=== PATIENT | male | born 1965 | race Caucasian/White ===

== ENCOUNTER 2018-10-04 19:47 | Emergency (ER) | payer MEDICAID ==
[~2018-10-04] VITALS: Ht 175.3 cm; Wt 85.7 kg
[2018-10-04 20:05] VITALS: BP_SYST 145
--- NOTE | 2018-10-04 20:10 | NUR ---
Patient triaged and placed in waiting room. VSS and patient appears in no acute distress at this time. Accompanied by family, awaiting available bed, and MD notified of need for MSE.
[2018-10-04] MEDS ORDERED: LISI10TA5 PO (20:18)
--- NOTE | 2018-10-04 20:20 | NUR ---
Patient AOx4, ambulatory, presents to ER with complaint of body aches, abdominal pain, dizziness, nausea, vomiting, generalized weakness, decreased appetite, "bones hurt" X 10 days. patient states he medicated with Power Magnesium x 3-4 hours ago. Patient states last BM was 4 days ago. No other symptoms or complaints. at bedside.
--- NOTE | 2018-10-04 20:40 | NUR ---
Patient to ER bed 5 for evaluation. Report given to Mary.
--- NOTE | 2018-10-04 21:20 | NUR ---
ER MD Beckham at bedside for medical evaluation.
[2018-10-04] MEDS ORDERED: NACL 0.9% 1,000 ML IV ONE (21:30)
[2018-10-04 21:58] LABS: CALCIUM 8.5 mg/dL (8.4-11.0); CREATININE 0.88 mg/dL (0.55-1.30); POTASSIUM 4.2 mmol/L (3.5-5.1)
[2018-10-04 22:05] LABS: ALBUMIN 3.8 g/dL (3.4-4.8); HEMATOCRIT 42.7 % (36-54); HEMOGLOBIN 14.9 g/dL (14.0-18.0); MEAN CORPUSCULAR HEMOGLOBIN 32 pg (27-31); MEAN CORPUSCULAR HGB CONC 35 % (32-36); MEAN CORPUSCULAR VOLUME 93 fL (79.0-98.0); PLATELET COUNT (AUTO) 168 K/uL (130-430); RED BLOOD CELL COUNT(AUTO) 4.61 MIL/uL (4.2-6.2); RED CELL DISTRIBUTION WIDTH 12.7 % (9.0-15.0); TOTAL BILIRUBIN 0.7 mg/dL (0.0-1.0); WHITE BLOOD COUNT (AUTO) 7.3 K/uL (4.8-10.8)
[2018-10-04 22:06] LABS: BASOPHILS % (AUTO) 0.5 % (0.0-2.0); EOSINOPHILS # (AUTO) 0.3 K/uL (0.0-0.4); EOSINOPHILS % (AUTO) 4.1 % (0.0-4.0); LYMPHOCYTES # (AUTO) 1.5 K/uL (1.0-5.5); MONOCYTES # (AUTO) 0.6 K/uL (0.0-1.0); MONOCYTES % (AUTO) 7.8 % (1.7-9.3); NEUTROPHILS # (AUTO) 4.9 K/uL (1.8-7.7); NEUTROPHILS % (AUTO) 66.6 % (40.0-70.0)
[2018-10-04] MEDS ORDERED: KETOROLAC TROMETHAMINE 30 MG VIAL IVP ONE (23:00)
[2018-10-04 23:33] VITALS: BP_SYST 140
--- NOTE | 2018-10-04 23:33 | NUR ---
Patient given written and verbal discharge instructions and verbalizes understanding. ER MD discussed with patient the results and treatment provided. Patient in stable condition. ID arm band removed. IV catheter removed intact and dressing applied, no active bleeding. Rx of Motrin given. Patient educated on pain management and to follow up with PMD. Pain Scale 02/10 tolerable to patient. Opportunity for questions provided and answered. Medication side effect fact sheet provided.
== END 2018-10-04 23:33 | disposition home or self-care (01) ==
LOC: SED 19:47
DX: R53.1 Weakness (principal); R19.7 Diarrhea, unspecified; M79.10 Myalgia, unspecified site; I10 Essential (primary) hypertension
CPT/HCPCS: 36415; 80053; 85025; 96361; 96374; 99283; J1885; J7030

== ENCOUNTER 2019-04-11 13:12 | Emergency (ER) | payer MEDICAID ==
[~2019-04-11] VITALS: Ht 175.3 cm; Wt 83.9 kg
[~2019-04-11 13:12] MED LIST: LISI10TA5 PO
[2019-04-11 13:27] VITALS: BP_SYST 145
[2019-04-11 13:46] VITALS: BP_SYST 133
== END 2019-04-11 13:46 | disposition home or self-care (01) ==
LOC: SED 13:12
DX: L03.221 Cellulitis of neck (principal); F11.10 Opioid abuse, uncomplicated; I10 Essential (primary) hypertension
CPT/HCPCS: 99283

== ENCOUNTER 2019-07-08 19:00 | Emergency (ER) | payer MEDICAID ==
[~2019-07-08] VITALS: Ht 175.3 cm; Wt 83.9 kg
[2019-07-08 19:33] VITALS: BP_SYST 138
--- NOTE | 2019-07-08 19:37 | NUR ---
Patient triaged and placed in waiting room. VSS and patient appears in no acute distress at this time. Accompanied by self, awaiting available bed, and MD notified of need for MSE.
--- NOTE | 2019-07-08 21:34 | NUR ---
[facility] Side rails up. Report given to MIKE ZIEGLER.
--- NOTE | 2019-07-08 21:53 | NUR ---
Patient complains of left great toe pain for 3 days. Patient states he thinks it's cellulitis and that his toenail fell off. Pt had similar experience about a year ago. Pt denies N/V, fever, or diarrhea. No other injuries/complaints per patient or noted.
--- NOTE | 2019-07-08 22:33 | NUR ---
ER Dr. Amos at bedside examining patient.
[2019-07-08 23:00] VITALS: BP_SYST 130
--- NOTE | 2019-07-08 23:00 | NUR ---
Patient given written and verbal discharge instructions and verbalizes understanding. ER MD discussed with patient the results and treatment provided. Patient in stable condition. ID arm band removed. NO IV Rx of Augmentin given. Patient educated on pain management and to follow up with PMD. Pain Scale 0/10. Opportunity for questions provided and answered. Medication side effect fact sheet provided.
== END 2019-07-08 23:00 | disposition home or self-care (01) ==
LOC: SED 19:00
DX: S93.105A Unspecified dislocation of left toe(s), initial encounter (principal); L03.032 Cellulitis of left toe; I10 Essential (primary) hypertension; Z87.891 Personal history of nicotine dependence; X58.XXXA Exposure to other specified factors, initial encounter; Y93.89 Activity, other specified; Y92.89 Other specified places as the place of occurrence of the external cause; Y99.8 Other external cause status
CPT/HCPCS: 99283

== ENCOUNTER 2019-08-09 23:29 | Emergency (ER) | payer MEDICAID ==
[~2019-08-09] VITALS: Ht 175.3 cm; Wt 83.5 kg
[2019-08-09 23:34] VITALS: BP_SYST 141
--- NOTE | 2019-08-09 23:38 | NUR ---
Patient to ER [facility] 1 to gown for evaluation. Side rails up.
--- NOTE | 2019-08-09 23:50 | NUR ---
Note becky in EDM - 08/10/19 at 0034 by [email or web address] Pt presents to ER with pelvic pain /burning , pt has IUD, pt on her period at this time, skin pink and warm, cap refill <3, afebrile.
--- NOTE | 2019-08-09 23:50 | NUR ---
Patient was BIB [facility] for okay to book. Pt denies any pain at the time. Per pt he has high blood pressure. Pt denies any N/V, fever, CP, or shortness of breath. No other injuries/complaints per patient or noted.
--- NOTE | 2019-08-09 23:52 | NUR ---
Dr Drake at bedside examining patient
[2019-08-10] MEDS ORDERED: LISINOPRIL 10 MG TABLET (PRINIVIL) PO ONE (00:30)
[2019-08-10 00:38] VITALS: BP_SYST 139
--- NOTE | 2019-08-10 00:38 | NUR ---
Patient given written and verbal discharge instructions and verbalizes understanding. ER MD discussed with patient the results and treatment provided. Patient in stable condition. ID arm band removed. No Rx given. Patient educated on pain management and to follow up with PMD. Pain Scale 0. Opportunity for questions provided and answered. Medication side effect fact sheet provided. Accompanied by [facility]. VSS
--- NOTE | 2019-08-10 00:39 | NUR ---
Computer not scanning , medications entered manually , name, verified.
== END 2019-08-10 00:38 ==
LOC: SED 23:29
DX: Z02.89 Encounter for other administrative examinations (principal); I10 Essential (primary) hypertension
CPT/HCPCS: 99283

== ENCOUNTER 2019-12-08 17:20 | Emergency (ER) | payer MEDICAID ==
[~2019-12-08] VITALS: Ht 167.6 cm; Wt 77.1 kg
--- NOTE | 2019-12-08 17:30 | NUR ---
Patient to ER bed 06 to gown for evaluation. Side rails up.
[2019-12-08 17:37] VITALS: BP_SYST 154
--- NOTE | 2019-12-08 17:40 | NUR ---
Patient presented to ER C/O skin rash. Patient A&Ox4, ambulatory to ER, skin pink & warm, pain 09/13, denies N/V/D. Patient states he had itchiness and discharge from skin today after shower. No discharge noted on assessment.
--- NOTE | 2019-12-08 17:40 | NUR ---
ER Dr. Alvarado at bedside examining patient.
[2019-12-08 18:50] VITALS: BP_SYST 149
--- NOTE | 2019-12-08 18:50 | NUR ---
Patient given written and verbal discharge instructions and verbalizes understanding. ER MD discussed with patient the results and treatment provided. Patient in stable condition. ID arm band removed. Rx of BENADRYL given. Patient educated on pain management and to follow up with PMD. Pain Scale 3/10. Opportunity for questions provided and answered. Medication side effect fact sheet provided.
== END 2019-12-08 18:50 | disposition home or self-care (01) ==
LOC: SED 17:20
DX: R21 Rash and other nonspecific skin eruption (principal); R07.9 Chest pain, unspecified
CPT/HCPCS: 93005; 99283

== ENCOUNTER 2021-05-09 08:45 | Emergency (ER) | payer MEDICAID, SELFPAY ==
[~2021-05-09] VITALS: Ht 175.3 cm; Wt 86.2 kg
[2021-05-09 08:45] VITALS: BP_SYST 168
[~2021-05-09 08:45] MED LIST changes: +LISI10TA29 PO; -LISI10TA5 PO
--- NOTE | 2021-05-09 08:45 | NUR ---
BROUGHT TO OUTSIDE TRIAGE TENT AND TRIAGED. AWAITING ER BED
--- NOTE | 2021-05-09 09:01 | NUR ---
PT STATES THAT FLU LIKE SYMPTOMS SINCE YESTERDAY, STATES HE IS A RESIDENT OF [facility]. PT STATES HEADACHES, BODY ACHES, SORE THROAT, FEVERS AND GENERALIZED WEAKNESS. SPOKE WITH PT ABOUT ELEVATED BLOOD PRESSURE AND PT STATES HE HAS NOT TAKEN HIS LISINOPRIL FOR LAST 6 MONTHS. WILL MONITOR BLOOD PRESSURE
--- NOTE | 2021-05-09 09:11 | NUR ---
DR CUI OUTSIDE TO TENT FOR EVALUATION
[2021-05-09] MEDS ORDERED: IBUP-1969 PO (10:39)
[2021-05-09 10:45] VITALS: BP_SYST 154
--- NOTE | 2021-05-09 10:45 | NUR ---
Patient given written and verbal discharge instructions and verbalizes understanding. ER MD discussed with patient the results and treatment provided. Patient in stable condition. ID arm band removed. Rx of IBUPROFEN given. Patient educated on pain management and to follow up with PMD. Pain Scale 0/10. Opportunity for questions provided and answered. Medication side effect fact sheet provided.
== END 2021-05-09 10:45 | disposition home or self-care (01) ==
LOC: SED 08:45
DX: B34.9 Viral infection, unspecified (principal); I10 Essential (primary) hypertension; Z20.822 Contact with and (suspected) exposure to COVID-19; Z79.899 Other long term (current) drug therapy
CPT/HCPCS: 36415; 86710; 99283

== ENCOUNTER 2023-03-05 00:54 | Emergency (ER) | payer MEDICAID ==
[~2023-03-05 00:54] MED LIST changes: +IBUP-1969 PO
== END 2023-03-05 01:10 | disposition left against medical advice (07) ==
LOC: SED 00:54
DX: R07.9 Chest pain, unspecified (principal); Z53.21 Procedure and treatment not carried out due to patient leaving prior to being seen by health care provider

== ENCOUNTER 2023-08-26 16:45 | Emergency (ER) | payer MEDICAID ==
[~2023-08-26] VITALS: Ht 172.7 cm; Wt 90.7 kg
[2023-08-26 16:53] VITALS: BP_SYST 159; PULSE 106; RESP 18; TEMP 97.6; O2SAT 95
[2023-08-26] MEDS ORDERED: CEFAZOLIN 2 GM IVPB PREMIX 50 ML IV ONE (17:45)
[2023-08-26] MEDS ORDERED: ONDANSETRON HCL 4 MG/2 ML VIAL IVP ONE (17:45)
[2023-08-26] MEDS ORDERED: NACL 0.9% 1,000 ML IV ONE (17:45)
[2023-08-26] MEDS ORDERED: LIDOCAINE/EPI 1% 1:100000 20 ML VIAL INJ ONE (18:00)
[2023-08-26 18:14] LABS: BASOPHILS # (AUTO) 0.1 K/uL (0.0-0.2); BASOPHILS % (AUTO) 0.9 % (0.0-2.0); EOSINOPHILS # (AUTO) 0.1 K/uL (0.0-0.4); EOSINOPHILS % (AUTO) 1.2 % (0.0-4.0); HEMATOCRIT 44.2 % (36-54); HEMOGLOBIN 15.6 g/dL (14.0-18.0); LYMPHOCYTES # (AUTO) 1.8 K/uL (1.0-5.5); LYMPHOCYTES % (AUTO) 21.8 % (20.5-51.5); MEAN CORPUSCULAR HEMOGLOBIN 34 pg (27-31); MEAN CORPUSCULAR HGB CONC 35 % (32-36); MEAN CORPUSCULAR VOLUME 95 fL (79.0-98.0); MONOCYTES # (AUTO) 0.8 K/uL (0.0-1.0); MONOCYTES % (AUTO) 9.6 % (1.7-9.3); NEUTROPHILS # (AUTO) 5.5 K/uL (1.8-7.7); NEUTROPHILS % (AUTO) 66.5 % (40.0-70.0); PLATELET COUNT (AUTO) 166 K/uL (130-430); RED BLOOD CELL COUNT(AUTO) 4.65 MIL/uL (4.2-6.2); RED CELL DISTRIBUTION WIDTH 12.6 % (9.0-15.0); WHITE BLOOD COUNT (AUTO) 8.2 K/uL (4.8-10.8)
[2023-08-26 19:09] LABS: CALCIUM 8.4 mg/dL (8.4-11.0); CREATININE 0.74 mg/dL (0.55-1.30)
[2023-08-26] MEDS ORDERED: LIDOCAINE 1%, 20 ML MDV 20 ML ONE (20:15)
[2023-08-26] MEDS ORDERED: DOXY100C5 PO (20:38)
[2023-08-26] MEDS: KETOROLAC TROMETHAMINE 30 MG VIAL IM ONE (21:02)
[2023-08-26] MEDS: ONDANSETRON 4 MG ODT TAB PO ONE (21:03)
[2023-08-26] MEDS: HYDROcodone/ACETAMIN 10-325 MG TAB PO ONE (21:03)
== END 2023-08-26 21:05 | disposition home or self-care (01) ==
LOC: SED 16:45
DX: L02.211 Cutaneous abscess of abdominal wall (principal); L03.311 Cellulitis of abdominal wall; I10 Essential (primary) hypertension; Z79.899 Other long term (current) drug therapy
CPT/HCPCS: 99284; 10060; 80048; 85025; 36415; 96372; J0690; J1885; J2001

== ENCOUNTER 2023-09-06 13:33 | Emergency (ER) | payer MEDICAID ==
[~2023-09-06] VITALS: Ht 175.3 cm; Wt 99.8 kg
[~2023-09-06 13:33] MED LIST changes: +DOXY100C5 PO
[2023-09-06 14:35] VITALS: BP_SYST 150; PULSE 90; RESP 18; TEMP 97.5; O2SAT 100
[2023-09-06] MEDS: ALPRAZolam 0.25 MG TABLET PO ONE (15:12)
[2023-09-06] MEDS ORDERED: CLIN-142 PO (15:34)
[2023-09-06] MEDS: BACITRACIN 1 GM OINT TP ONE (15:40)
[2023-09-06] MEDS: LIDOCAINE 1% 10 MG/ML, 20 ML MDV INJ ONE (15:40)
[2023-09-06 15:58] VITALS: BP_SYST 150; PULSE 90; RESP 18; TEMP 97.5; O2SAT 100
== END 2023-09-06 15:57 | disposition home or self-care (01) ==
LOC: SED 13:33
DX: L02.416 Cutaneous abscess of left lower limb (principal); I10 Essential (primary) hypertension; Z79.899 Other long term (current) drug therapy
CPT/HCPCS: 99284; J2001

== ENCOUNTER 2023-09-08 18:17 | Emergency (ER) | payer MEDICAID ==
[~2023-09-08] VITALS: Ht 175.3 cm; Wt 99.8 kg
[~2023-09-08 18:17] MED LIST changes: +CLIN-142 PO
[2023-09-08 18:50] VITALS: BP_SYST 124; PULSE 72; RESP 16; TEMP 97.5; O2SAT 97
[2023-09-08] MEDS: MORPHINE 4 MG INJ. 4 MG/ML VIAL IM ONE (21:56)
[2023-09-08] MEDS: SULFAMETHOXAZOLE/TRIMETHOPR DS 1 TABLET PO ONE (21:57)
[2023-09-08 21:58] VITALS: BP_SYST 124; PULSE 72; RESP 16; TEMP 97.5; O2SAT 97
[2023-09-08] MEDS: cephALEXin 500 MG CAPSULE PO ONE (21:58)
[2023-09-08] MEDS ORDERED: CEPH-548 PO (22:12)
[2023-09-08] MEDS ORDERED: SULF1TAB48 PO (22:12)
[2023-09-08] MEDS ORDERED: TRAM50TA2 PO (22:12)
== END 2023-09-08 21:38 | disposition home or self-care (01) ==
LOC: SED 18:17
DX: L02.416 Cutaneous abscess of left lower limb (principal); L03.116 Cellulitis of left lower limb; I10 Essential (primary) hypertension; Z79.899 Other long term (current) drug therapy
CPT/HCPCS: 99283; 96372; J2270

== ENCOUNTER 2023-09-20 23:17 | Inpatient (IN) | payer MEDICAID ==
[~2023-09-20] VITALS: Ht 175.3 cm; Wt 94.9 kg
[~2023-09-20 23:17] MED LIST changes: +CEPH-548 PO; +SULF1TAB48 PO; +TRAM50TA2 PO
[2023-09-20 23:25] VITALS: BP_SYST 168; PULSE 71; RESP 20; TEMP 98; O2SAT 98
[2023-09-21] MEDS: ONDANSETRON HCL 4 MG/2 ML VIAL IVP ONE (00:13)
[2023-09-21] MEDS: MORPHINE 2 MG/ML INJ. SYRINGE IVP ONE (00:17)
[2023-09-21] MEDS: NITROGLYCERIN 1 INCH (GM) OINT. TP ONE (00:27)
[2023-09-21 01:05] LABS: BASOPHILS % (AUTO) 0.7 % (0.0-2.0); EOSINOPHILS # (AUTO) 0.2 K/uL (0.0-0.4); EOSINOPHILS % (AUTO) 3.1 % (0.0-4.0); HEMATOCRIT 39.5 % (36-54); HEMOGLOBIN 14.1 g/dL (14.0-18.0); LYMPHOCYTES # (AUTO) 1.6 K/uL (1.0-5.5); LYMPHOCYTES % (AUTO) 23.7 % (20.5-51.5); MEAN CORPUSCULAR HEMOGLOBIN 33 pg (27-31); MEAN CORPUSCULAR HGB CONC 36 % (32-36); MEAN CORPUSCULAR VOLUME 93 fL (79.0-98.0); MONOCYTES # (AUTO) 0.6 K/uL (0.0-1.0); MONOCYTES % (AUTO) 9.2 % (1.7-9.3); NEUTROPHILS # (AUTO) 4.4 K/uL (1.8-7.7); NEUTROPHILS % (AUTO) 63.3 % (40.0-70.0); PLATELET COUNT (AUTO) 133 K/uL (130-430); RED BLOOD CELL COUNT(AUTO) 4.24 MIL/uL (4.2-6.2); RED CELL DISTRIBUTION WIDTH 12.4 % (9.0-15.0); WHITE BLOOD COUNT (AUTO) 6.9 K/uL (4.8-10.8)
[2023-09-21 02:09] LABS: ANION GAP 6 (5-15); CALCIUM 8.9 mg/dL (8.4-11.0); CARBON DIOXIDE 32 mmol/L (23-29); CHLORIDE 101 mmol/L (98-107); CREATININE 1.05 mg/dL (0.55-1.30); GFR AFRICAN AMERICAN 94 mL/min (>90); GLUCOSE 127 mg/dL (74-106); POTASSIUM 3.5 mmol/L (3.5-5.1); SODIUM SERUM 139 mmol/L (136-145); UREA NITROGEN, BLOOD 21 mg/dL (8-21)
[2023-09-21 02:16] LABS: ALANINE AMINOTRANSFERASE 40 U/L (12-78); ALBUMIN 3.6 g/dL (3.4-4.8); ASPARTATE AMINOTRANSFERASE 14 U/L (10-37); BILIRUBIN,DIRECT 0.1 mg/dL (0.0-0.3); LIPASE 64 U/L (16-77); TOTAL BILIRUBIN 0.3 mg/dL (0.0-1.0); TOTAL PROTEIN, SERUM 7.3 g/dL (6.4-8.3)
[2023-09-21 02:17] LABS: GFR NON AFRICAN-AMERICAN 77 mL/min (>90)
[2023-09-21] MEDS ORDERED: LISI-209 PO (05:03)
[2023-09-21] MEDS: ASPIRIN 81 MG TAB.CHEW PO ONE (05:11)
[2023-09-21] MEDS: MORPHINE 4 MG INJ. 4 MG/ML VIAL IVP ONE (06:19)
[2023-09-21 07:27] LABS: BILIRUBIN,URINE NEGATIVE (NEGATIVE); BLOOD, URINE NEGATIVE (NEGATIVE); CLARITY/URINE CLEAR (CLEAR); COLOR,URINE YELLOW (YELLOW); GLUCOSE,URINE NEGATIVE (NEGATIVE); KETONES,URINE NEGATIVE (NEGATIVE); LEUKOCYTE ESTERASE ,URINE NEGATIVE (NEGATIVE); NITRITE, URINE NEGATIVE (NEGATIVE); PH,URINE 7.5 (5.0-8.0); PROTEIN URINE NEGATIVE (NEGATIVE); UROBILINOGEN,URINE 0.2 (0.2-1.0)
[2023-09-21 08:30] VITALS: BP_SYST 142; PULSE 62; RESP 17; TEMP 97.1; O2SAT 98
[2023-09-21] MEDS ORDERED: NALOXONE HCL 0.4 MG/ML AMP (NARCAN) IVP PRN ×2 (11:45→15:45)
[2023-09-21] MEDS: MORPHINE 2 MG/ML INJ. SYRINGE IVP PRN (12:27)
[2023-09-21] MEDS ORDERED: MORPHINE 2 MG/ML INJ. SYRINGE IVP PRN (15:45)
[2023-09-21 17:30] LABS: PROTHROMBIN TIME 10.7 SECS (9.5-12.5)
[2023-09-21] MEDS: AMPICILLIN SODIUM/SULBACTAM NA 1.5 GM in NS 50 ML IV SCH (17:52)
[2023-09-21] MEDS: NACL 0.9% 1,000 ML IV SCH (17:53)
[2023-09-21 20:20] VITALS: O2SAT 97
[2023-09-21] MEDS ORDERED: MELATONIN 5 MG TABLET PO ONE (22:44)
[2023-09-21] MEDS: MELATONIN 5 MG TABLET PO PRN (22:51)
[2023-09-22 00:51] VITALS: BP_SYST 136; PULSE 77; RESP 18; TEMP 98.1; O2SAT 97
[2023-09-22 05:25] LABS: BASOPHILS % (AUTO) 0.8 % (0.0-2.0); EOSINOPHILS # (AUTO) 0.3 K/uL (0.0-0.4); EOSINOPHILS % (AUTO) 4.5 % (0.0-4.0); HEMATOCRIT 40.6 % (36-54); HEMOGLOBIN 14.4 g/dL (14.0-18.0); LYMPHOCYTES # (AUTO) 1.7 K/uL (1.0-5.5); LYMPHOCYTES % (AUTO) 29.1 % (20.5-51.5); MEAN CORPUSCULAR HEMOGLOBIN 33 pg (27-31); MEAN CORPUSCULAR HGB CONC 35 % (32-36); MEAN CORPUSCULAR VOLUME 94 fL (79.0-98.0); MONOCYTES # (AUTO) 0.5 K/uL (0.0-1.0); MONOCYTES % (AUTO) 9.4 % (1.7-9.3); NEUTROPHILS # (AUTO) 3.2 K/uL (1.8-7.7); NEUTROPHILS % (AUTO) 56.2 % (40.0-70.0); PLATELET COUNT (AUTO) 122 K/uL (130-430); RED BLOOD CELL COUNT(AUTO) 4.32 MIL/uL (4.2-6.2); RED CELL DISTRIBUTION WIDTH 12.6 % (9.0-15.0); WHITE BLOOD COUNT (AUTO) 5.8 K/uL (4.8-10.8)
[2023-09-22 07:05] LABS: CALCIUM 8.3 mg/dL (8.4-11.0); CREATININE 0.92 mg/dL (0.55-1.30); POTASSIUM 3.9 mmol/L (3.5-5.1); TOTAL BILIRUBIN 0.4 mg/dL (0.0-1.0); TOTAL PROTEIN, SERUM 6.4 g/dL (6.4-8.3)
[2023-09-22 07:54] VITALS: BP_SYST 138; PULSE 64; RESP 18; TEMP 97.5; O2SAT 97
[2023-09-22 08:30] VITALS: O2SAT 97
[2023-09-22 16:57] VITALS: BP_SYST 149; PULSE 64; RESP 16; TEMP 97.5; O2SAT 97
[2023-09-22] MEDS ORDERED: DEXAMETHASONE SOD PHOSPHATE 4 MG/ML VIAL ONE (18:22)
[2023-09-22] MEDS ORDERED: NS 1000 ML IV.SOLN IV ONE (18:22)
[2023-09-22] MEDS ORDERED: SEVOFLURANE 15 MIN GAS INH ONE (18:22)
[2023-09-22] MEDS ORDERED: hydrALAZINE HCL 20 MG/ML VIAL ONE (18:22)
[2023-09-22] MEDS ORDERED: SUCCINYLCHOLINE CHLORIDE 20 MG/ML(QUELICIN) ONE (18:22)
[2023-09-22] MEDS ORDERED: PROPOFOL 200MG/ 20ML VIAL (DIPRIVAN) IV ONE (18:22)
[2023-09-22] MEDS ORDERED: hydrALAZINE HCL 20 MG/ML VIAL IV PRN (19:00)
[2023-09-22] MEDS ORDERED: ONDANSETRON HCL 4 MG/2 ML VIAL IVP PRN (19:00)
[2023-09-22] MEDS ORDERED: HYDROmorphone 1 MG/ML INJ. CARTRIDGE IVP PRN ×2 (19:00)
[2023-09-22] MEDS ORDERED: NALOXONE HCL 0.4 MG/ML AMP (NARCAN) IVP PRN ×2 (19:00→20:30)
[2023-09-22] MEDS: HYDROmorphone 2 MG/ML VIAL ONE (19:38)
[2023-09-22 21:05] VITALS: BP_SYST 145; PULSE 83; RESP 18; TEMP 98.8; O2SAT 96
[2023-09-23] VITALS: BP_SYST 129; PULSE 73; RESP 18; TEMP 97.9; O2SAT 97
[2023-09-23] MEDS: HYDROmorphone 1 MG/ML INJ. CARTRIDGE IVP PRN (00:09)
[2023-09-23 08:00] VITALS: O2SAT 95
[2023-09-23 08:07] VITALS: BP_SYST 145; PULSE 86; RESP 18; TEMP 98.2; O2SAT 96
[2023-09-23] MEDS: ACETAMINOPHEN 325 MG TABLET PO PRN (09:38)
[2023-09-23] MEDS ORDERED: HYDR-3917 PO (09:40)
[2023-09-23 12:00] VITALS: BP_SYST 140; PULSE 98; RESP 18; TEMP 98.6; O2SAT 100
[2023-09-23 16:00] VITALS: BP_SYST 118; PULSE 82; RESP 18; TEMP 98; O2SAT 99
[2023-09-23 16:09] VITALS: BP_SYST 140; PULSE 98; RESP 18; TEMP 98.6; O2SAT 99
[2023-09-23] MEDS ORDERED: NALOXONE HCL 0.4 MG/ML AMP (NARCAN) IVP PRN (16:30)
[2023-09-23] MEDS: HYDROcodone/ACETAMIN 5-325 MG TAB (NORCO/ VICODIN) PO ONE (17:27)
== END 2023-09-23 16:50 | disposition home or self-care (01) | DRG 263 ==
LOC: SED 23:17 → STU 09-21 04:55 → SMU 09-21 08:32 → STU 09-21 08:43 → SMU 09-23 00:06
PROVIDERS: ADMIT Student in an Organized Health Care Education/Training Program; ATTEND Student in an Organized Health Care Education/Training Program
PROC: 0FT44ZZ Resection of Gallbladder, Percutaneous Endoscopic Approach (ICD-10-PCS; principal; 2023-09-22 18:45)
DX: K80.00 Calculus of gallbladder with acute cholecystitis without obstruction (principal); F10.90 Alcohol use, unspecified, uncomplicated; I10 Essential (primary) hypertension; Z79.899 Other long term (current) drug therapy
CPT/HCPCS: 36415; 71045; 76700; 80048; 80053; 80076; 81001; 81003; 83605; 83690; 83735; 83880; 84100; 84484; 85025; 85610; 85730; 86886; 86900; 86901; 87040; 87081; 88304; 96374; 96375; 96376; 99285; C1727; G0378; J0295; J0330; J0360; J1100; J1170; J2270; J2405; J2704; J7030; Q9967

== ENCOUNTER 2023-10-29 09:28 | Emergency (ER) | payer MEDICAID ==
[~2023-10-29 09:28] MED LIST changes: +HYDR-3917 PO; +LISI-209 PO
== END 2023-10-29 09:32 | disposition left against medical advice (07) ==
LOC: SED 09:28
DX: H57.10 Ocular pain, unspecified eye (principal); Z53.21 Procedure and treatment not carried out due to patient leaving prior to being seen by health care provider